=== PATIENT | female | born 1995 | race Two or more races ===

== ENCOUNTER → 2021-02-21 | Outpatient (CLI) | payer BC ==
[2021-02-21 11:18] LABS: HEMATOCRIT 43.3 % (31.2-41.9); MEAN CORPUSCULAR HEMOGLOBIN 29.1 uug (24.7-32.8); MEAN CORPUSCULAR VOLUME 88.1 fL (75.5-95.3); PLATELET COUNT (AUTO) 395 K/uL (179-408)
[2021-02-21 11:34] LABS: BILIRUBIN,TOTAL 0.5 mg/dL (0.2-1.0); CREATININE 0.8 mg/dL (0.6-1.3); POTASSIUM 4.3 mmol/L (3.5-5.1); TOTAL PROTEIN, SERUM 7.5 g/dL (6.4-8.2)
[2021-02-21 11:38] LABS: THYROID STIMULATING HORMONE 2.1 mIU/mL (0.358-3.740)
[2021-02-22 08:06] LABS: PROLACTIN 24.2 ng/mL (4.8-23.3)
== END | disposition home or self-care (01) ==
LOC: RAD 10:42
PROVIDERS: ATTEND Family Medicine
DX: N83.292 Other ovarian cyst, left side (principal); N91.2 Amenorrhea, unspecified; N88.8 Other specified noninflammatory disorders of cervix uteri; Z11.3 Encounter for screening for infections with a predominantly sexual mode of transmission
CPT/HCPCS: 76856; 82043; 82570; 84146; 84443; 85025; 86592; 86694; 87491; 87806

== ENCOUNTER 2024-04-05 03:48 | Emergency (ER) | payer BC ==
[~2024-04-05] VITALS: Ht 175.3 cm; Wt 93.9 kg
[2024-04-05] MEDS ORDERED: KETOROLAC TROMETHAMINE 30 MG INJ ONE (04:42)
[2024-04-05] MEDS ORDERED: diphenhydrAMINE 50 MG/1 ML VIAL ONE (04:42)
[2024-04-05] MEDS ORDERED: METOCLOPRAMIDE HCL 10 MG/2 ML VIAL ONE (04:42)
[2024-04-05] MEDS: diphenhydrAMINE 50 MG/1 ML VIAL IV ONE (04:50)
[2024-04-05] MEDS: METOCLOPRAMIDE HCL 10 MG/2 ML VIAL IV ONE (04:50)
[2024-04-05] MEDS: KETOROLAC TROMETHAMINE 30 MG INJ IVP ONE (04:52)
[2024-04-05] MEDS: IV NORMAL SALINE 1000 ML BAG IV ONE (04:52)
[2024-04-05 05:14] LABS: BASOPHILS # (AUTO) 0.1 K/UL (0.0-0.2); BASOPHILS % (AUTO) 0.8 % (0.0-2.0); EOSINOPHILS # (AUTO) 0.1 K/uL (0.0-0.7); EOSINOPHILS % (AUTO) 1.8 % (0.0-7.0); HEMATOCRIT 42.6 % (31.2-41.9); HEMOGLOBIN 14.1 g/dL (10.9-14.3); LYMPHOCYTES # (AUTO) 2.8 K/uL (0.8-4.8); LYMPHOCYTES % (AUTO) 33.9 % (20.5-51.5); MEAN CORPUSCULAR HEMOGLOBIN 29.2 uug (24.7-32.8); MEAN CORPUSCULAR HGB CONC 33 g/dL (32.3-35.6); MEAN CORPUSCULAR VOLUME 88.1 fL (75.5-95.3); MONOCYTES # (AUTO) 0.5 K/uL (0.1-1.30); MONOCYTES % (AUTO) 6.1 % (0.0-11.0); NEUTROPHILS # (AUTO) 4.8 K/uL (1.8-8.9); NEUTROPHILS % (AUTO) 57.4 % (38.5-71.5); PLATELET COUNT (AUTO) 385 K/uL (179-408); RED BLOOD CELL COUNT(AUTO) 4.83 MIL/uL (3.63-4.92); WHITE BLOOD COUNT (AUTO) 8.3 K/uL (3.8-11.8)
[2024-04-05 05:35] LABS: DIFFERENTIAL COMMENT 1
[2024-04-05 05:37] LABS: CALCIUM 8.8 mg/dL (8.5-10.1); CREATININE 0.6 mg/dL (0.6-1.3); POTASSIUM 3.9 mmol/L (3.5-5.1)
[2024-04-05 05:37] LABS: *BILIRUBIN,URIN NEGATIVE (NEGATIVE); *BLOOD, URINE NEGATIVE (NEGATIVE); *CLARITY,URINE CLEAR (CLEAR); *COLOR,URINE YELLOW (YELLOW); *KETONES,URINE NEGATIVE (NEGATIVE); *PROTEIN,URINE NEGATIVE (NEGATIVE); *URINE HCG, QUAL NEGATIVE (NEGATIVE); LEUKOCYTE ESTERASE ,URINE NEGATIVE (NEGATIVE); NITRITE, URINE NEGATIVE (NEGATIVE); PH,URINE 6.5 (5.0-8.0); UGLUCOSE NEGATIVE (NEGATIVE)
[2024-04-05 05:46] LABS: ALBUMIN 3.6 g/dL (3.4-5.0); BILIRUBIN,DIRECT 0.1 mg/dL (0.0-0.2); BILIRUBIN,TOTAL 0.5 mg/dL (0.2-1.0); TOTAL PROTEIN, SERUM 7.1 g/dL (6.4-8.2)
[2024-04-05] MEDS ORDERED: DICY10CA13 PO (06:41)
[2024-04-05 06:50] VITALS: BP 125/75; TEMP 98.1; O2SAT 98
== END 2024-04-05 06:52 | disposition home or self-care (01) ==
LOC: ER 04:01
DX: R10.32 Left lower quadrant pain (principal); R10.2 Pelvic and perineal pain; J45.909 Unspecified asthma, uncomplicated; E11.9 Type 2 diabetes mellitus without complications; Z79.899 Other long term (current) drug therapy
CPT/HCPCS: 99284; 96374; 96375; 96361; 80076; 80048; 81003; 84703; 83690; 85025; 36415; J1200; J1885; J2765; J7040; A4606; A4663